=== PATIENT | male | born 1980 | race Caucasian/White ===

== ENCOUNTER 2018-04-02 23:54 | Emergency (ER) | payer SELFPAY ==
[~2018-04-02] VITALS: Ht 193 cm; Wt 145.1 kg
[2018-04-02 23:59] VITALS: BP 145/90
[2018-04-03] MEDS ORDERED: LIDOCAINE /MPF 1% VIAL 5 ML VIAL ONE (00:24)
[2018-04-03] MEDS ORDERED: LIDOCAINE HCL/PF 1% 30 ML VIAL TP ONE (00:30)
[2018-04-03] MEDS ORDERED: TDAP [DIPH/PERTUSSIS/TET] 0.5 ML VIAL IM ONE ×2 (00:30→00:50)
[2018-04-03] MEDS ORDERED: ACETAMINOPHEN ES 500 MG TABLET ONE (01:23)
[2018-04-03] MEDS ORDERED: ACETAMINOPHEN ES 500 MG TABLET PO ONE (01:30)
== END 2018-04-03 01:24 | disposition home or self-care (01) ==
LOC: ER 04-03 00:01
DX: S61.214A Laceration without foreign body of right ring finger without damage to nail, initial encounter (principal); I10 Essential (primary) hypertension; K21.9 Gastro-esophageal reflux disease without esophagitis; Z87.19 Personal history of other diseases of the digestive system; W45.8XXA Other foreign body or object entering through skin, initial encounter; Y93.89 Activity, other specified; Y92.89 Other specified places as the place of occurrence of the external cause; Y99.8 Other external cause status
CPT/HCPCS: 90715; A4606; A6402; J3490; Z7610